=== PATIENT | female | born 1935 | race Asian ===

== ENCOUNTER → 2016-08-18 | Outpatient (CLI) | payer MEDICARE, OTHER ==
[~2016-08-18] VITALS: Ht 147.3 cm; Wt 52.0 kg
[~2016-08-18] MED LIST: AMLO-511 PO; ASCO10007 PO; LISI-662 PO; METO-325 PO; SIMV-260 PO; VITA100012 PO; WARF2 PO
[2016-08-18 09:29] VITALS: BP 138/71
== END | disposition home or self-care (01) ==
LOC: SRCNTR 09:14
PROVIDERS: ATTEND Internal Medicine Cardiovascular Disease
DX: I48.91 Unspecified atrial fibrillation (principal)
CPT/HCPCS: 85610; G0463

== ENCOUNTER → 2016-09-02 | Outpatient (CLI) | payer MEDICARE, OTHER ==
[~2016-09-02] VITALS: Ht 147.3 cm; Wt 51.7 kg
[2016-09-02 10:08] VITALS: BP 157/64
== END | disposition home or self-care (01) ==
LOC: SRCNTR 10:07
PROVIDERS: ATTEND Internal Medicine Cardiovascular Disease
DX: I10 Essential (primary) hypertension (principal); E78.5 Hyperlipidemia, unspecified; I48.2 Chronic atrial fibrillation
CPT/HCPCS: 85610; G0463

== ENCOUNTER → 2016-09-30 | Outpatient (CLI) | payer MEDICARE, OTHER ==
[~2016-09-30] VITALS: Ht 147.3 cm; Wt 52.0 kg
[2016-09-30 09:22] VITALS: BP 134/61
== END | disposition home or self-care (01) ==
LOC: SRCNTR 08:52
PROVIDERS: ATTEND Internal Medicine Cardiovascular Disease
DX: I48.91 Unspecified atrial fibrillation (principal)
CPT/HCPCS: 85610; G0463

== ENCOUNTER → 2016-11-01 | Outpatient (CLI) | payer MEDICARE, OTHER ==
[~2016-11-01] VITALS: Ht 147.3 cm; Wt 53.0 kg
[~2016-11-01] MED LIST changes: -SIMV-260 PO; +SIMV20 PO
[2016-11-01 09:16] VITALS: BP 121/73
== END | disposition home or self-care (01) ==
LOC: SRCNTR 09:00
PROVIDERS: ATTEND Internal Medicine Cardiovascular Disease
DX: I48.91 Unspecified atrial fibrillation (principal)
CPT/HCPCS: 85610; G0463

== ENCOUNTER → 2016-11-28 | Outpatient (CLI) | payer MEDICARE, OTHER ==
[~2016-11-28] VITALS: Ht 147.3 cm; Wt 51.0 kg
[2016-11-28 10:00] VITALS: BP 137/55
== END | disposition home or self-care (01) ==
LOC: SRCNTR 09:53
PROVIDERS: ATTEND Internal Medicine Cardiovascular Disease
DX: I10 Essential (primary) hypertension (principal); E78.5 Hyperlipidemia, unspecified; I48.2 Chronic atrial fibrillation
CPT/HCPCS: G0463

== ENCOUNTER → 2016-12-30 | Outpatient (CLI) | payer MEDICARE, OTHER ==
[~2016-12-30] VITALS: Ht 147.3 cm; Wt 52.0 kg
[~2016-12-30] MED LIST changes: +SIMV-260 PO; -SIMV20 PO
[2016-12-30 08:58] VITALS: BP 153/63
== END | disposition home or self-care (01) ==
LOC: SRCNTR 08:55
PROVIDERS: ATTEND Internal Medicine Cardiovascular Disease
DX: I48.91 Unspecified atrial fibrillation (principal)
CPT/HCPCS: 85610; G0463

== ENCOUNTER → 2017-01-30 | Outpatient (CLI) | payer MEDICARE, OTHER ==
[~2017-01-30] VITALS: Ht 147.3 cm; Wt 52.5 kg
[2017-01-30 09:15] VITALS: BP 124/60
== END | disposition home or self-care (01) ==
LOC: SRCNTR 09:11
PROVIDERS: ATTEND Internal Medicine Cardiovascular Disease
DX: I48.91 Unspecified atrial fibrillation (principal)
CPT/HCPCS: 85610; G0463

== ENCOUNTER → 2017-02-27 | Outpatient (CLI) | payer MEDICARE, OTHER ==
[~2017-02-27] VITALS: Ht 147.3 cm; Wt 52.7 kg
[2017-02-27 10:01] VITALS: BP 138/66
== END | disposition home or self-care (01) ==
LOC: SRCNTR 10:00
PROVIDERS: ATTEND Internal Medicine Cardiovascular Disease
DX: I48.0 Paroxysmal atrial fibrillation (principal); I10 Essential (primary) hypertension; E78.5 Hyperlipidemia, unspecified; Z79.01 Long term (current) use of anticoagulants
CPT/HCPCS: 85610; G0463

== ENCOUNTER → 2017-03-30 | Outpatient (CLI) | payer MEDICARE, OTHER ==
[2017-03-30 12:26] LABS: INR 3.1 (0.9-1.1); PROTHROMBIN TIME 33.2 SEC (9.4-11.6)
== END | disposition home or self-care (01) ==
LOC: LABPV 10:57
PROVIDERS: ATTEND Internal Medicine Cardiovascular Disease
DX: I48.2 Chronic atrial fibrillation (principal)

== ENCOUNTER → 2017-05-01 | Outpatient (CLI) | payer MEDICARE, OTHER ==
[~2017-05-01] MED LIST changes: -METO-325 PO; +METO-558 PO
[2017-05-01 11:18] LABS: INR 2.6 (0.9-1.1); PROTHROMBIN TIME 27.8 SEC (9.4-11.6)
== END | disposition home or self-care (01) ==
LOC: LABPV 09:38
PROVIDERS: ATTEND Internal Medicine Cardiovascular Disease
DX: I48.2 Chronic atrial fibrillation (principal)

== ENCOUNTER → 2017-05-31 | Outpatient (CLI) | payer MEDICARE, OTHER ==
[~2017-05-31] VITALS: Ht 147.3 cm; Wt 52.0 kg
[2017-05-31 10:07] VITALS: BP 150/73
== END | disposition home or self-care (01) ==
LOC: SRCNTR 09:57
PROVIDERS: ATTEND Internal Medicine Cardiovascular Disease
DX: I10 Essential (primary) hypertension (principal); I48.2 Chronic atrial fibrillation; E78.5 Hyperlipidemia, unspecified; Z79.01 Long term (current) use of anticoagulants
CPT/HCPCS: G0463

== ENCOUNTER → 2017-07-07 | Outpatient (CLI) | payer MEDICARE, OTHER ==
[~2017-07-07] VITALS: Ht 147.3 cm; Wt 52.0 kg
[~2017-07-07] MED LIST changes: -METO-558 PO
[2017-07-07 09:30] VITALS: BP 144/62
== END | disposition home or self-care (01) ==
LOC: SRCNTR 09:03
PROVIDERS: ATTEND Internal Medicine Cardiovascular Disease
DX: I48.91 Unspecified atrial fibrillation (principal)
CPT/HCPCS: G0463

== ENCOUNTER → 2017-08-11 | Outpatient (CLI) | payer MEDICARE, OTHER ==
[~2017-08-11] VITALS: Ht 147.3 cm; Wt 54.0 kg
[2017-08-11 16:16] VITALS: BP 156/55
== END | disposition home or self-care (01) ==
LOC: SRCNTR 14:17
PROVIDERS: ATTEND Internal Medicine Cardiovascular Disease
DX: I48.91 Unspecified atrial fibrillation (principal)
CPT/HCPCS: 85610; G0463

== ENCOUNTER → 2017-09-11 | Outpatient (CLI) | payer MEDICARE, OTHER ==
[~2017-09-11] VITALS: Ht 147.3 cm; Wt 53.0 kg
[2017-09-11 10:25] VITALS: BP 131/73
== END | disposition home or self-care (01) ==
LOC: SRCNTR 10:20
PROVIDERS: ATTEND Internal Medicine Cardiovascular Disease
DX: I10 Essential (primary) hypertension (principal); I48.2 Chronic atrial fibrillation; E78.5 Hyperlipidemia, unspecified; Z79.01 Long term (current) use of anticoagulants
CPT/HCPCS: G0463

== ENCOUNTER → 2017-10-09 | Outpatient (CLI) | payer MEDICARE, OTHER ==
[~2017-10-09] VITALS: Ht 147.3 cm; Wt 54.0 kg
[2017-10-09 09:12] VITALS: BP 140/56
== END | disposition home or self-care (01) ==
LOC: SRCNTR 08:55
PROVIDERS: ATTEND Internal Medicine Cardiovascular Disease
DX: I48.91 Unspecified atrial fibrillation (principal)
CPT/HCPCS: 85610; G0463

== ENCOUNTER → 2017-11-09 | Outpatient (CLI) | payer MEDICARE, OTHER ==
[~2017-11-09] VITALS: Ht 147.3 cm; Wt 52.5 kg
[2017-11-09 08:58] VITALS: BP 124/54
== END | disposition home or self-care (01) ==
LOC: SRCNTR 08:56
PROVIDERS: ATTEND Internal Medicine Cardiovascular Disease
DX: I48.91 Unspecified atrial fibrillation (principal)
CPT/HCPCS: 85610; G0463

== ENCOUNTER → 2017-12-05 | Outpatient (CLI) | payer MEDICARE, OTHER ==
[~2017-12-05] VITALS: Ht 147.3 cm; Wt 53.0 kg
[2017-12-05 13:44] VITALS: BP 141/83
== END | disposition home or self-care (01) ==
LOC: SRCNTR 13:43
PROVIDERS: ATTEND Internal Medicine Cardiovascular Disease
DX: I10 Essential (primary) hypertension (principal); E78.5 Hyperlipidemia, unspecified; I48.2 Chronic atrial fibrillation; M16.11 Unilateral primary osteoarthritis, right hip; Z79.01 Long term (current) use of anticoagulants
CPT/HCPCS: G0463

== ENCOUNTER → 2018-01-05 | Outpatient (CLI) | payer MEDICARE, OTHER ==
[~2018-01-05] VITALS: Ht 147.3 cm; Wt 53.0 kg
[2018-01-05 09:01] VITALS: BP 123/55
== END | disposition home or self-care (01) ==
LOC: SRCNTR 08:59
PROVIDERS: ATTEND Internal Medicine Cardiovascular Disease
DX: I48.2 Chronic atrial fibrillation (principal); I10 Essential (primary) hypertension; E78.5 Hyperlipidemia, unspecified
CPT/HCPCS: 85610; G0463

== ENCOUNTER → 2018-02-09 | Outpatient (CLI) | payer MEDICARE, OTHER ==
[~2018-02-09] VITALS: Ht 147.3 cm; Wt 53.5 kg
[2018-02-09 13:12] VITALS: BP 140/70
== END | disposition home or self-care (01) ==
LOC: SRCNTR 09:18
PROVIDERS: ATTEND Internal Medicine Cardiovascular Disease
DX: I48.91 Unspecified atrial fibrillation (principal); I10 Essential (primary) hypertension
CPT/HCPCS: G0463

== ENCOUNTER → 2018-03-07 | Outpatient (CLI) | payer MEDICARE, OTHER ==
[~2018-03-07] VITALS: Ht 147.3 cm; Wt 53.0 kg
[2018-03-07 10:10] VITALS: BP 145/52
== END | disposition home or self-care (01) ==
LOC: SRCNTR 10:07
PROVIDERS: ATTEND Internal Medicine Cardiovascular Disease
DX: I10 Essential (primary) hypertension (principal); I48.0 Paroxysmal atrial fibrillation; E78.5 Hyperlipidemia, unspecified
CPT/HCPCS: 85610; G0463

== ENCOUNTER → 2018-04-09 | Outpatient (CLI) | payer MEDICARE, OTHER ==
[~2018-04-09] VITALS: Ht 147.3 cm; Wt 52.8 kg
[2018-04-09 09:11] VITALS: BP 127/63
== END | disposition home or self-care (01) ==
LOC: SRCNTR 08:50
PROVIDERS: ATTEND Internal Medicine Cardiovascular Disease
DX: I48.91 Unspecified atrial fibrillation (principal)
CPT/HCPCS: 85610; G0463

== ENCOUNTER → 2018-05-09 | Outpatient (CLI) | payer MEDICARE, OTHER ==
[~2018-05-09] VITALS: Ht 147.3 cm; Wt 53.0 kg
[2018-05-09 10:28] VITALS: BP 120/64
== END | disposition home or self-care (01) ==
LOC: SRCNTR 09:05
PROVIDERS: ATTEND Internal Medicine Cardiovascular Disease
DX: I48.91 Unspecified atrial fibrillation (principal)
CPT/HCPCS: 85610; G0463

== ENCOUNTER → 2018-06-11 | Outpatient (CLI) | payer MEDICARE, OTHER ==
[~2018-06-11] VITALS: Ht 147.3 cm; Wt 53.5 kg
[~2018-06-11] MED LIST changes: +LOSA50TA2 PO
[2018-06-11 10:13] VITALS: BP 142/72
== END | disposition home or self-care (01) ==
LOC: SRCNTR 09:54
PROVIDERS: ATTEND Internal Medicine Cardiovascular Disease
DX: I48.2 Chronic atrial fibrillation (principal); I10 Essential (primary) hypertension; E78.5 Hyperlipidemia, unspecified; M25.561 Pain in right knee; M25.562 Pain in left knee; M19.90 Unspecified osteoarthritis, unspecified site
CPT/HCPCS: 85610; G0463

== ENCOUNTER → 2018-07-09 | Outpatient (CLI) | payer MEDICARE, OTHER ==
[~2018-07-09] VITALS: Ht 147.3 cm; Wt 53.5 kg
[~2018-07-09] MED LIST changes: -LISI-662 PO
[2018-07-09 09:26] VITALS: BP 124/55
== END | disposition home or self-care (01) ==
LOC: SRCNTR 09:20
PROVIDERS: ATTEND Internal Medicine Cardiovascular Disease
DX: Z45.02 Encounter for adjustment and management of automatic implantable cardiac defibrillator (principal); I48.91 Unspecified atrial fibrillation
CPT/HCPCS: 85610; G0463

== ENCOUNTER → 2018-08-17 | Outpatient (CLI) | payer MEDICARE, OTHER ==
[~2018-08-17] VITALS: Ht 147.3 cm; Wt 54.0 kg
[2018-08-17 09:27] VITALS: BP 143/59
== END | disposition home or self-care (01) ==
LOC: SRCNTR 09:15
PROVIDERS: ATTEND Internal Medicine Cardiovascular Disease
DX: I48.91 Unspecified atrial fibrillation (principal)
CPT/HCPCS: 85610; G0463

== ENCOUNTER → 2018-09-10 | Outpatient (CLI) | payer MEDICARE, OTHER ==
[~2018-09-10] VITALS: Ht 147.3 cm; Wt 52.0 kg
[2018-09-10 10:27] VITALS: BP 127/57
== END | disposition home or self-care (01) ==
LOC: SRCNTR 10:06
PROVIDERS: ATTEND Internal Medicine Cardiovascular Disease
DX: E78.5 Hyperlipidemia, unspecified (principal); I48.91 Unspecified atrial fibrillation; I10 Essential (primary) hypertension
CPT/HCPCS: G0463

== ENCOUNTER → 2018-10-08 | Outpatient (CLI) | payer MEDICARE, OTHER ==
[~2018-10-08] VITALS: Ht 147.3 cm; Wt 53.5 kg
[2018-10-08 09:53] VITALS: BP 130/73
== END | disposition home or self-care (01) ==
LOC: SRCNTR 09:20
PROVIDERS: ATTEND Internal Medicine Cardiovascular Disease
DX: I48.91 Unspecified atrial fibrillation (principal)
CPT/HCPCS: 85610; G0463

== ENCOUNTER → 2018-11-06 | Outpatient (CLI) | payer MEDICARE, OTHER | END | disposition home or self-care (01) | LOC: RADPV 12:50 | PROVIDERS: ATTEND Family Medicine | DX: J18.9 Pneumonia, unspecified organism (principal); I70.0 Atherosclerosis of aorta; I11.9 Hypertensive heart disease without heart failure; M81.0 Age-related osteoporosis without current pathological fracture; E11.9 Type 2 diabetes mellitus without complications; E78.5 Hyperlipidemia, unspecified; I48.0 Paroxysmal atrial fibrillation; E03.9 Hypothyroidism, unspecified ==

== ENCOUNTER → 2018-11-08 | Outpatient (CLI) | payer MEDICARE, OTHER ==
[~2018-11-08] VITALS: Ht 147.3 cm; Wt 53.0 kg
[~2018-11-08] MED LIST changes: +AZIT250T9 PO; +METH4TAB16 PO
[2018-11-08 13:04] VITALS: BP 128/70
== END | disposition home or self-care (01) ==
LOC: SRCNTR 08:56
PROVIDERS: ATTEND Internal Medicine Cardiovascular Disease
DX: I48.91 Unspecified atrial fibrillation (principal)
CPT/HCPCS: 85610; G0463

== ENCOUNTER 2018-11-17 16:36 | Emergency (ER) | payer MEDICARE, OTHER ==
[~2018-11-17] VITALS: Ht 152.4 cm; Wt 52.3 kg
[~2018-11-17 16:36] MED LIST changes: -AZIT250T9 PO; -METH4TAB16 PO
[2018-11-17 18:18] LABS: BASOPHILS % (AUTO) 0.6 % (0.0-2.0); HEMATOCRIT 48.1 % (36-46); HEMOGLOBIN 15.5 g/dL (12.0-16.0); LYMPHOCYTES # (AUTO) 1.7 K/uL (1.0-4.8); LYMPHOCYTES % (AUTO) 23.5 % (22.0-44.0); MEAN CORPUSCULAR HEMOGLOBIN 31.3 pg (26.0-34.0); MEAN CORPUSCULAR HGB CONC 32.3 G/dL (31.0-37.0); MEAN CORPUSCULAR VOLUME 97 fL (80-100); MONOCYTES # (AUTO) 0.8 K/uL (0.1-1.0); MONOCYTES % (AUTO) 11.2 % (2.0-9.0); NEUTROPHILS # (AUTO) 4.6 K/uL (1.8-7.7); NEUTROPHILS % (AUTO) 63.7 % (40.0-70.0); PLATELET COUNT (AUTO) 255 K/uL (150-450); RED BLOOD CELL COUNT(AUTO) 4.97 MIL/uL (4.00-5.20); RED CELL DISTRIBUTION WIDTH 14.5 % (11.5-14.5)
[2018-11-17 18:27] LABS: APPEARANCE,URINE CLEAR (CLEAR); BILIRUBIN,URINE NEGATIVE (NEGATIVE); GLUCOSE, URINE (UA) NEGATIVE (NEGATIVE); KETONES,URINE NEGATIVE (NEGATIVE); LEUKOCYTE ESTERASE ,URINE NEGATIVE (NEGATIVE); NITRATE,URINE NEGATIVE (NEGATIVE); OCCULT BLOOD,URINE NEGATIVE (NEGATIVE); PH,URINE 5.5 (5.0-8.0); PROTEIN,URINE NEGATIVE (NEGATIVE); UROBILINOGEN,URINE 0.2 mg/dL (<=1.0)
[2018-11-17 18:30] VITALS: BP 146/63
[2018-11-17 18:34] LABS: ANION GAP 5 mmol/L (8-16); CALCIUM, TOTAL 9.2 mg/dL (8.8-10.5); CARBON DIOXIDE 31 mmol/L (22-29); CHLORIDE 106 mmol/L (98-107); CREATININE 0.83 mg/dL (0.60-1.30); GLUCOSE,RANDOM 110 mg/dL (70-110); SODIUM SERUM 142 mmol/L (136-145); UREA NITROGEN, BLOOD 13 mg/dL (7-18)
[2018-11-17 18:36] LABS: GLOMERULAR FILTR. RATE CALC > 60 mL/min (>60)
[2018-11-17 18:46] LABS: B-TYPE NATRIURETIC PEPTIDE 270 pg/mL (0-100)
[2018-11-17 18:58] LABS: ALANINE AMINOTRANSFERASE 23 U/L (12-78); ALBUMIN 3.5 g/dL (3.4-5.0); ALKALINE PHOSPHATASE 66 U/L (46-116); ASPARTATE AMINOTRANSFERASE 19 U/L (15-37); BILIRUBIN,TOTAL 0.5 mg/dL (0.1-1.0); CREATINE KINASE, TOTAL ONLY 112 U/L (26-192); TOTAL PROTEIN, SERUM 8.1 g/dL (6.4-8.2)
[2018-11-17] MEDS ORDERED: BENZONATATE 100 MG CAPSULE PO ONE (19:45)
[2018-11-21] MEDS ORDERED: AZIT250T9 PO (11:30)
[2018-11-21] MEDS ORDERED: METH4TAB16 PO (11:30)
== END 2018-11-17 21:28 | disposition home or self-care (01) ==
LOC: EMS 16:38
DX: J40 Bronchitis, not specified as acute or chronic (principal); I10 Essential (primary) hypertension; I48.91 Unspecified atrial fibrillation; Z79.899 Other long term (current) drug therapy
CPT/HCPCS: 93005

== ENCOUNTER → 2018-11-21 | Outpatient (CLI) | payer MEDICARE, OTHER ==
[~2018-11-21] VITALS: Ht 147.3 cm; Wt 53.0 kg
[~2018-11-21] MED LIST changes: +AZIT250T9 PO; +METH4TAB16 PO
[2018-11-21 11:28] VITALS: BP 170/70
== END | disposition home or self-care (01) ==
LOC: SRCNTR 11:24
PROVIDERS: ATTEND Internal Medicine Cardiovascular Disease
DX: I10 Essential (primary) hypertension (principal); E78.5 Hyperlipidemia, unspecified; J20.9 Acute bronchitis, unspecified; I48.91 Unspecified atrial fibrillation
CPT/HCPCS: 85610; G0463

== ENCOUNTER → 2018-12-04 | Outpatient (CLI) | payer MEDICARE, OTHER | END | disposition home or self-care (01) | LOC: RADPV 13:49 | PROVIDERS: ATTEND Internal Medicine | DX: R05 Cough (principal); I51.7 Cardiomegaly; I70.0 Atherosclerosis of aorta ==

== ENCOUNTER → 2019-06-26 | Outpatient (CLI) | payer MEDICARE, OTHER ==
[~2019-06-26] VITALS: Ht 147.3 cm; Wt 49.0 kg
[~2019-06-26] MED LIST changes: -AMLO-511 PO; +AMLO5TAB9 PO; +APIX5TAB PO; +ATOR40TA28 PO; -AZIT250T9 PO; +CHOL125C2 PO; +LOSA1TAB42 PO; -LOSA50TA2 PO; -METH4TAB16 PO; -SIMV-260 PO; -WARF2 PO
[2019-06-26 10:15] VITALS: BP 111/52
== END | disposition home or self-care (01) ==
LOC: SRCNTR 10:14
PROVIDERS: ATTEND Internal Medicine Cardiovascular Disease
DX: I48.20 Chronic atrial fibrillation, unspecified (principal); I10 Essential (primary) hypertension; E78.5 Hyperlipidemia, unspecified
CPT/HCPCS: G0463

== ENCOUNTER → 2019-09-25 | Outpatient (CLI) | payer MEDICARE, OTHER ==
[~2019-09-25] VITALS: Ht 147.3 cm; Wt 51.0 kg
[2019-09-25 10:04] VITALS: BP 121/59
== END | disposition home or self-care (01) ==
LOC: SRCNTR 10:02
PROVIDERS: ATTEND Internal Medicine Cardiovascular Disease
DX: R94.31 Abnormal electrocardiogram [ECG] [EKG] (principal); I48.91 Unspecified atrial fibrillation; I10 Essential (primary) hypertension; E78.5 Hyperlipidemia, unspecified
CPT/HCPCS: 93005; G0463

== ENCOUNTER → 2019-12-30 | Outpatient (CLI) | payer MEDICARE, OTHER | END | disposition home or self-care (01) | LOC: SRCNTR 10:50 | PROVIDERS: ATTEND Internal Medicine Cardiovascular Disease | DX: I48.20 Chronic atrial fibrillation, unspecified (principal); I10 Essential (primary) hypertension; E78.5 Hyperlipidemia, unspecified; Z79.899 Other long term (current) drug therapy | CPT/HCPCS: G0463 ==

== ENCOUNTER → 2020-02-12 | Outpatient (CLI) | payer MEDICARE, OTHER ==
[~2020-02-12] MED LIST changes: +AMLO-257 PO; -AMLO5TAB9 PO; -ASCO10007 PO; +[UNRECOGNIZED DRUG - CODE] PO
== END | disposition home or self-care (01) ==
LOC: SRCNTR 11:02
PROVIDERS: ATTEND Internal Medicine Cardiovascular Disease
DX: I10 Essential (primary) hypertension (principal); I48.91 Unspecified atrial fibrillation; E78.5 Hyperlipidemia, unspecified
CPT/HCPCS: Q3014

== ENCOUNTER → 2020-04-13 | Outpatient (CLI) | payer MEDICARE, OTHER ==
[~2020-04-13] MED LIST changes: +ASCO100061 PO; -[UNRECOGNIZED DRUG - CODE] PO
== END | disposition home or self-care (01) ==
LOC: SRCNTR 10:52
PROVIDERS: ATTEND Internal Medicine Cardiovascular Disease
DX: I48.20 Chronic atrial fibrillation, unspecified (principal); E78.5 Hyperlipidemia, unspecified; I10 Essential (primary) hypertension; Z79.899 Other long term (current) drug therapy
CPT/HCPCS: Q3014

== ENCOUNTER → 2020-09-25 | Outpatient (CLI) | payer MEDICARE, OTHER ==
[~2020-09-25] VITALS: Ht 147.3 cm; Wt 51.3 kg
[~2020-09-25] MED LIST changes: -CHOL125C2 PO; +CHOL500013 PO; +LOSA-30 PO; -LOSA1TAB42 PO
[2020-09-25 11:17] VITALS: BP 121/50
== END | disposition home or self-care (01) ==
LOC: SRCNTR 10:29
PROVIDERS: ATTEND Internal Medicine Cardiovascular Disease
DX: I10 Essential (primary) hypertension (principal); E78.5 Hyperlipidemia, unspecified; I48.20 Chronic atrial fibrillation, unspecified
CPT/HCPCS: G0463; Z7500

== ENCOUNTER → 2020-12-25 | Outpatient (CLI) | payer MEDICARE, OTHER ==
[2020-12-25 10:42] VITALS: BP 145/51
== END | disposition home or self-care (01) ==
LOC: SRCNTR 10:18
PROVIDERS: ATTEND Internal Medicine Cardiovascular Disease
DX: I10 Essential (primary) hypertension (principal); E78.5 Hyperlipidemia, unspecified; I48.20 Chronic atrial fibrillation, unspecified
CPT/HCPCS: G0463

== ENCOUNTER → 2021-04-30 | Outpatient (CLI) | payer MEDICARE, OTHER ==
[~2021-04-30] VITALS: Ht 147.3 cm; Wt 50.8 kg
[2021-04-30 10:12] VITALS: BP 149/48
== END | disposition home or self-care (01) ==
LOC: SRCNTR 09:54
PROVIDERS: ATTEND Internal Medicine Cardiovascular Disease
DX: I10 Essential (primary) hypertension (principal); E78.5 Hyperlipidemia, unspecified; I48.20 Chronic atrial fibrillation, unspecified
CPT/HCPCS: G0463

== ENCOUNTER → 2021-05-19 | Outpatient (CLI) | payer MEDICARE, OTHER | END | disposition home or self-care (01) | LOC: RADPV 11:04 | PROVIDERS: ATTEND Internal Medicine | DX: M19.072 Primary osteoarthritis, left ankle and foot (principal); M77.32 Calcaneal spur, left foot ==

== ENCOUNTER → 2021-10-14 | Outpatient (CLI) | payer MEDICARE, OTHER | END | disposition home or self-care (01) | LOC: RADMN 14:41 | PROVIDERS: ATTEND Internal Medicine | DX: M19.041 Primary osteoarthritis, right hand (principal); M79.89 Other specified soft tissue disorders; M79.641 Pain in right hand | CPT/HCPCS: 73130-TC ==

== ENCOUNTER → 2021-10-18 | Outpatient (CLI) | payer MEDICARE, OTHER ==
[~2021-10-18] VITALS: Ht 144.8 cm; Wt 45.0 kg
[2021-10-18 10:32] VITALS: BP 139/44
== END | disposition home or self-care (01) ==
LOC: SRCNTR 10:09
PROVIDERS: ATTEND Internal Medicine Cardiovascular Disease
DX: I10 Essential (primary) hypertension (principal); E78.5 Hyperlipidemia, unspecified; I48.20 Chronic atrial fibrillation, unspecified; R41.81 Age-related cognitive decline
CPT/HCPCS: G0463

== ENCOUNTER → 2022-02-18 | Outpatient (CLI) | payer MEDICARE, OTHER ==
[~2022-02-18] VITALS: Ht 147.3 cm; Wt 48.6 kg
[2022-02-18 10:23] VITALS: BP 164/70
== END | disposition home or self-care (01) ==
LOC: SRCNTR 10:03
PROVIDERS: ATTEND Internal Medicine Cardiovascular Disease
DX: I10 Essential (primary) hypertension (principal); Z09 Encounter for follow-up examination after completed treatment for conditions other than malignant neoplasm; E78.5 Hyperlipidemia, unspecified; I48.20 Chronic atrial fibrillation, unspecified; R41.81 Age-related cognitive decline
CPT/HCPCS: G0463

== ENCOUNTER → 2022-06-01 | Outpatient (CLI) | payer MEDICARE, OTHER ==
[~2022-06-01] VITALS: Ht 147.3 cm; Wt 48.5 kg
[~2022-06-01] MED LIST changes: +LEVO25TA9 PO; +LOSA-422 PO
[2022-06-01 10:07] VITALS: BP 123/73
== END | disposition home or self-care (01) ==
LOC: SRCNTR 09:53
PROVIDERS: ATTEND Internal Medicine Cardiovascular Disease
DX: I10 Essential (primary) hypertension (principal); Z09 Encounter for follow-up examination after completed treatment for conditions other than malignant neoplasm; E11.9 Type 2 diabetes mellitus without complications; I48.91 Unspecified atrial fibrillation; E78.5 Hyperlipidemia, unspecified; R41.81 Age-related cognitive decline
CPT/HCPCS: G0463; Z7500

== ENCOUNTER → 2022-08-08 | Outpatient (CLI) | payer MEDICARE, OTHER ==
[~2022-08-08] VITALS: Ht 147.3 cm; Wt 47.5 kg
[~2022-08-08] MED LIST changes: +LEVO750T68 PO; -LOSA-30 PO; +LOSA-382 PO; -LOSA-422 PO; +NACL1 PO
[2022-08-08 10:13] VITALS: BP 144/57
== END | disposition home or self-care (01) ==
LOC: SRCNTR 09:43
PROVIDERS: ATTEND Internal Medicine Cardiovascular Disease
DX: I10 Essential (primary) hypertension (principal); J18.9 Pneumonia, unspecified organism; I48.20 Chronic atrial fibrillation, unspecified; E78.5 Hyperlipidemia, unspecified; R41.81 Age-related cognitive decline
CPT/HCPCS: G0463; Z7500

== ENCOUNTER → 2022-09-05 | Outpatient (CLI) | payer MEDICARE, OTHER ==
[~2022-09-05] VITALS: Ht 147.3 cm; Wt 47.0 kg
[~2022-09-05] MED LIST changes: -ASCO100061 PO; +HYDR25TA84 PO; -LEVO750T68 PO; -NACL1 PO
[2022-09-05 10:03] VITALS: BP 137/73
== END | disposition home or self-care (01) ==
LOC: SRCNTR 09:33
PROVIDERS: ATTEND Internal Medicine Cardiovascular Disease
DX: Z09 Encounter for follow-up examination after completed treatment for conditions other than malignant neoplasm (principal); I48.20 Chronic atrial fibrillation, unspecified; I10 Essential (primary) hypertension; E78.5 Hyperlipidemia, unspecified; R41.81 Age-related cognitive decline
CPT/HCPCS: G0463; Z7500

== ENCOUNTER → 2022-12-12 | Outpatient (CLI) | payer MEDICARE, OTHER ==
[~2022-12-12] VITALS: Ht 147.3 cm; Wt 50.0 kg
[2022-12-12 11:23] VITALS: BP 127/53
== END | disposition home or self-care (01) ==
LOC: SRCNTR 10:57
PROVIDERS: ATTEND Internal Medicine Cardiovascular Disease
DX: Z09 Encounter for follow-up examination after completed treatment for conditions other than malignant neoplasm (principal); I48.20 Chronic atrial fibrillation, unspecified; I10 Essential (primary) hypertension; E78.5 Hyperlipidemia, unspecified; R41.81 Age-related cognitive decline
CPT/HCPCS: G0463

== ENCOUNTER → 2023-04-05 | Outpatient (CLI) | payer MEDICARE, OTHER ==
[~2023-04-05] VITALS: Ht 144.8 cm; Wt 47.5 kg
[2023-04-05 10:43] VITALS: BP 122/46; PULSE 58; RESP 18; TEMP 98.6; O2SAT 99
== END | disposition home or self-care (01) ==
LOC: SRCNTR 10:17
PROVIDERS: ATTEND Internal Medicine Cardiovascular Disease
DX: Z09 Encounter for follow-up examination after completed treatment for conditions other than malignant neoplasm (principal); I48.20 Chronic atrial fibrillation, unspecified; I10 Essential (primary) hypertension; E78.5 Hyperlipidemia, unspecified; R41.81 Age-related cognitive decline
CPT/HCPCS: G0463

== ENCOUNTER → 2023-06-07 | Outpatient (CLI) | payer MEDICARE, OTHER ==
[~2023-06-07] VITALS: Ht 147.3 cm; Wt 48.0 kg
[~2023-06-07] MED LIST changes: -HYDR25TA84 PO
[2023-06-07 11:10] VITALS: BP 129/60; PULSE 64; RESP 18; TEMP 98.4; O2SAT 98
== END | disposition home or self-care (01) ==
LOC: SRCNTR 10:43
PROVIDERS: ATTEND Internal Medicine Cardiovascular Disease
DX: I10 Essential (primary) hypertension (principal); I48.20 Chronic atrial fibrillation, unspecified; E78.5 Hyperlipidemia, unspecified; Z79.899 Other long term (current) drug therapy
CPT/HCPCS: G0463; Z7500

== ENCOUNTER → 2023-08-16 | Outpatient (CLI) | payer MEDICARE, OTHER ==
[~2023-08-16] VITALS: Ht 147.3 cm; Wt 49.0 kg
[2023-08-16 10:00] VITALS: BP 126/53; PULSE 68; RESP 20; TEMP 98.3; O2SAT 98
== END | disposition home or self-care (01) ==
LOC: SRCNTR 09:48
PROVIDERS: ATTEND Internal Medicine Cardiovascular Disease
DX: Z09 Encounter for follow-up examination after completed treatment for conditions other than malignant neoplasm (principal); I48.20 Chronic atrial fibrillation, unspecified; I10 Essential (primary) hypertension; E78.5 Hyperlipidemia, unspecified; R41.81 Age-related cognitive decline
CPT/HCPCS: G0463